=== PATIENT | female | born 1950 | race Caucasian/White ===

== ENCOUNTER → 2017-03-05 | Outpatient (CLI) | payer BC ==
[2015-08-22 17:00] VITALS: BP 166/70
[~2017-03-05] MED LIST: CITA20TA5 PO; EZET10TA18 PO; HYDR-2758 PO; IBUP-1060 PO; LEVO200T5 PO; MONT10TA9 PO; OMEG500C PO; VALS1TAB25 PO
--- NOTE | 2017-03-05 10:54 | RAD ---
DATE: 03/05/2017 EXAM: MAMMO DARNELL AMANDA BLANCO, BREAST RIGHT HISTORY: Right breast lump COMPARISON: 06/20/2015 The breast parenchyma shows scattered fibroglandular densities. Breast parenchyma level B. FINDINGS: 2-D and 3-D tomosynthesis imaging was performed in CC and MLO projections. A skin marker was placed over the skin surface in the area of reported palpable concern in the upper inner quadrant of the right breast. There are only fatty type densities in this portion of the right breast. No suspicious breast densities are seen. No new or enlarging breast densities are seen in either breast. Minimal benign type calcifications are noted. Right breast ultrasound, 03/05/2017: A targeted ultrasound exam of the area of concern in the upper quadrant of the right breast was performed. At approximately the 2:00 location, 10 cm from the nipple there is an oval-shaped superficial nodule which is slightly hyperechoic relative to the adjacent subcutaneous fat. It measures 2.1 x 1.7 x 1.1 cm. The appearance is compatible with a benign lipoma. IMPRESSION: 1. Stable mammograms without evidence of malignancy. 2. Small superficial nodule at the 2:00 location in the right breast with mammographic and sonographic characteristics typical of a lipoma. BI-RADS CATEGORY: 2 BENIGN FINDING(S) RECOMMENDED FOLLOW-UP: 12M 12 MONTH FOLLOW-UP PQRS compliance statement: Patient information was entered into a reminder system with a target due date for the next mammogram. Mammography is a sensitive method for finding small breast cancers, but it does not detect them all and is not a substitute for careful clinical examination. A negative mammogram does not negate a clinically suspicious finding and should not result in delay in biopsying a clinically suspicious abnormality. "Our facility is accredited by the [employer] Mammography [employer]."
== END | disposition home or self-care (01) ==
LOC: KCIC MAMMO 09:11
PROVIDERS: ATTEND Family Medicine
DX: N63 Unspecified lump in breast (principal)
CPT/HCPCS: 76641; G0204; G0279; 77062; 77066

== ENCOUNTER → 2017-10-23 | Outpatient (CLI) | payer BC | END | disposition home or self-care (01) | LOC: KCIC MRI 13:35 | DX: M51.16 Intervertebral disc disorders with radiculopathy, lumbar region (principal); M43.16 Spondylolisthesis, lumbar region | CPT/HCPCS: 72148 ==